=== PATIENT | male | born 1970 | race Caucasian/White ===

== ENCOUNTER → 2017-04-30 | Day surgery (SDC) | payer OTHER ==
--- NOTE | 2017-04-30 16:14 | RADIOLOGY REPORT (SQ) ---
EXAM DESCRIPTION: ARTHRO ELBOW INJECTION COMPLETED DATE/TIME: 04/30/2017 1:40 pm REASON FOR STUDY: SPONTANEOUS RUPTURE OF OTHER TENDONS, UNSPEC UPPER ARM (M66.829) M66.829 SPONTANE OUS RUPTURE OF OTHER TENDONS, UNSPECIFIED UP COMPARISON: None. FLUOROSCOPY TIME: 53 seconds 1 digital radiographic image saved to PACS. LIMITATIONS: None. PROCEDURE: Procedure, risks, benefits and alternatives explained to patient who then gave written c onsent. The left elbow was marked and a time-out was called for correct marking verification. Entry site marked using fluoroscopic guidance. Elbow prepped and draped using sterile technique. Local a nesthesia achieved using 1 mL of 1% lidocaine injection. 25 gauge needle introduced into the joint s pace under direct fluoroscopic visualization. Non-ionic contrast instilled to confirm intra-articula r position. Dilute gadolinium solution then injected. Needle removed and entry site covered with s terile bandage. No immediate complications noted. TECHNIQUE: Digital images acquired during fluoroscopy and stored on PACS. Patient immediately take n to the MR suite for additional imaging. INJECTION LOCATION: Left elbow at the radiohumeral joint CONTRAST TYPE AND AMOUNT: 0.5 mL of Isovue-300 was injected to confirm intra-articular needle placeme nt followed by 4 mL of dilute ProHance gadolinium for MR arthrogram IMPRESSION: SUCCESSFUL NEEDLE PLACEMENT AND INJECTION FOR LEFT ELBOW MR ARTHROGRAM. COMMENT: Quality ID [id number]: Final reports for procedures using fluoroscopy that document radiation exp osure indices, or exposure time and number of fluorographic images (if radiation exposure indices are not available) TECHNICAL DOCUMENTATION: JOB ID: [id number] [employer]- All Rights Reserved
--- NOTE | 2017-04-30 16:53 | RADIOLOGY REPORT (SQ) ---
EXAM DESCRIPTION: MRI LT UPPER JOINT WITH COMPLETED DATE/TIME: 04/30/2017 2:08 pm REASON FOR STUDY: SPONTANEOUS RUPTURE OF OTHER TENDONS, UNSPEC UPPER ARM (M66.829) M66.829 SPONTANE OUS RUPTURE OF OTHER TENDONS, UNSPECIFIED UP COMPARISON: Plain radiograph TECHNIQUE: Leftelbow images acquired and stored on PACS. Multiplanar images to include fat sensitive sequences as T1, fluid sensitive sequences as T2/STIR, cartilage sensitive sequences as FSPD, and co ntrast sensitive sequences as FST1. LIMITATIONS: None. FINDINGS: BONE MARROW: Residual bone bruising/ marrow edema of the olecranon. JOINT DISTENSION: Adequate MEDIAL COLLATERAL LIGAMENT COMPLEX: Normal MEDIAL EPICONDYLE AND COMMON FLEXOR TENDON: Normal LATERAL COLLATERAL LIGAMENT: Normal LATERAL EPICONDYLE AND COMMON EXTENSOR TENDON: Normal LATERAL ULNAR COLLATERAL LIGAMENT: Normal BICEPS TENDON: Normal TRICEPS TENDON: Edema status post repair. ULNAR NERVE: Extensive edema along the course of the ulnar nerve. Ulnar nerve is poorly defined. ADJACENT SOFT TISSUES: Persistent posterior edema. OTHER: No other significant finding. IMPRESSION: Persistent edema along the triceps attachment on the ulnar but in soft tissue and bone. Edema extends along the tract of the ulnar nerve. No occult fracture. TECHNICAL DOCUMENTATION: JOB ID: [id number] [employer]- All Rights Reserved
== END ==
LOC: RAD 12:43
PROVIDERS: ATTEND Orthopaedic Surgery
PROC: BP0 Imaging, Non-Axial Upper Bones, Plain Radiography (ICD-10-PCS; principal; 2017-04-30)
DX: M66.822 Spontaneous rupture of other tendons, left upper arm (principal)
CPT/HCPCS: 73222; 77002; 24220; A9576

== ENCOUNTER 2018-07-22 10:28 | Observation (INO) | payer BC, OTHER ==
[2018-07-22 11:01] LABS: ABSOLUTE BASOPHILS # (AUTO) 0.1 10^3/uL (0.0-0.2); ABSOLUTE EOSINOPHILS # (AUTO) 0.1 10^3/uL (0.0-0.6); ABSOLUTE MONOCYTES (AUTO) 0.7 10^3/uL (0.1-1.4); ABSOLUTE NEUT (AUTO) 6.9 10^3/uL (1.7-8.2); BASOPHILS % (AUTO) 0.9 % (0-2); LYMPHOCYTES % (AUTO) 11.7 % (13-45); MEAN CORPUSCULAR HEMOGLOBIN 27.7 pg (27.0-33.4); MEAN CORPUSCULAR HGB CONC 33.5 g/dL (32.0-36.0); MEAN CORPUSCULAR VOLUME 83 fl (80-97); RED BLOOD COUNT 6.84 10^6/uL (4.35-5.55); RED CELL DISTRIBUTION WIDTH 14.2 % (11.5-14.0); SEGMENTED NEUTROPHILS % (AUTO) 78.4 % (42-78); TOTAL CELLS COUNTED % (AUTO) 100 %; WHITE BLOOD COUNT 8.8 10^3/uL (4.0-10.5)
--- NOTE | 2018-07-22 11:13 | RADIOLOGY REPORT (SQ) ---
EXAM DESCRIPTION: CHEST SINGLE VIEW COMPLETED DATE/TIME: 07/22/2018 10:56 am REASON FOR STUDY: bed 12 cp COMPARISON: None. EXAM PARAMETERS: NUMBER OF VIEWS: One view. TECHNIQUE: Single frontal radiographic view of the chest acquired. RADIATION DOSE: NA LIMITATIONS: None. FINDINGS: LUNGS AND PLEURA: No opacities, masses or pneumothorax. No pleural effusion. MEDIASTINUM AND HILAR STRUCTURES: No masses. Contour normal. HEART AND VASCULAR STRUCTURES: Heart normal in size. Normal vasculature. BONES: No acute findings. HARDWARE: None in the chest. OTHER: No other significant finding. IMPRESSION: NO ACUTE RADIOGRAPHIC FINDING IN THE CHEST. TECHNICAL DOCUMENTATION: JOB ID: [id number] [employer]- All Rights Reserved Reading location - IP/workstation name: [email or web address]
[2018-07-22 11:18] LABS: ALANINE AMINOTRANSFERASE 34 U/L (21-72); ALKALINE PHOSPHATASE 74 U/L (38-126); ASPARTATE AMINO TRANSFERASE 15 U/L (17-59); BILIRUBIN,DIRECT 0.3 mg/dL (0.0-0.4); BILIRUBIN,TOTAL 0.5 mg/dL (0.2-1.3); BLOOD UREA NITROGEN 14 mg/dL (7-20); CALCIUM 9.6 mg/dL (8.4-10.2); CARBON DIOXIDE 24 mmol/L (22-30); CHLORIDE 108 mmol/L (98-107); CREATINE KINASE 145 U/L (55-170); GLUCOSE 107 mg/dL (75-110); POTASSIUM 3.9 mmol/L (3.6-5.0); TOTAL PROTEIN 6.6 g/dL (6.3-8.2)
[2018-07-22 11:20] LABS: ANION GAP 9 (5-19); SODIUM 141.2 mmol/L (137-145)
[2018-07-22] MEDS ORDERED: KETOROLAC TROMETHAMINE INJ/PF 30 MG/1 ML SDV IV ONE ×2 (11:23)
[2018-07-22] MEDS ORDERED: ONDANSETRON HCL INJ/PF 4 MG/2 ML SDV IV ONE (11:23)
[2018-07-22 11:33] LABS: HEMATOCRIT 56.7 % (37.9-51.0); TROPONIN I < 0.012 ng/mL
[2018-07-22 11:34] LABS: PLATELET COUNT 102 10^3/uL (150-450)
[2018-07-22] MEDS ORDERED: NITROGLYCERIN 0.4 MG/TAB 25 TAB/BOTTLE ONE (11:47)
[2018-07-22 11:51] LABS: LIPASE 197.7 U/L (23-300)
[2018-07-22] MEDS ORDERED: NORMAL SALINE 1000 ML 1,000 ML IV ONE (12:21)
--- NOTE | 2018-07-22 12:43 | RADIOLOGY REPORT (SQ) ---
EXAM DESCRIPTION: U/S ABDOMEN LIMITED W/O DOP COMPLETED DATE/TIME: 07/22/2018 12:07 pm REASON FOR STUDY: RUQ abd pain COMPARISON: None. TECHNIQUE: Dynamic and static grayscale images acquired of the abdomen and recorded on PACS. Additio nal selected color Doppler and spectral images recorded. LIMITATIONS: Examination generally limited by overlying bowel gas. FINDINGS: PANCREAS: No masses. Visualized pancreatic duct normal caliber. LIVER: No masses. Echotexture normal. LIVER VASCULATURE: Normal directional flow of the main portal vein and hepatic veins. GALLBLADDER: No mobile stones. Multiple small adherent foci, which may reflect adherent gallstones o r adenomas, measuring up to 5 mm. Normal wall thickness. No pericholecystic fluid. ULTRASOUND-DETECTED NUÑEZ'S SIGN: Negative. INTRAHEPATIC DUCTS AND COMMON DUCT: CBD and intrahepatic ducts normal caliber. No filling defects. INFERIOR VENA CAVA: Normal flow. AORTA: No aneurysm. RIGHT KIDNEY: Normal size. Normal echogenicity. No solid or suspicious masses. No hydronephrosis. No calcifications. PERITONEAL AND RIGHT PLEURAL SPACE: No ascites or effusions. OTHER: No other significant findings. IMPRESSION: 1. No acute ultrasound findings to explain abdominal pain. Consider CT or MRI to [facility] evaluate unexplained abdominal pain. 2. Multiple small adherent foci of the gallbladder, which may reflect adherent gallstones or adenomas , measuring up to 5 mm. Recommend initial follow-up ultrasound examination at 1 year to ensure stabi lity. TECHNICAL DOCUMENTATION: JOB ID: [id number] [place] [employer]- All Rights Reserved Reading location - IP/workstation name: [email or web address]
--- NOTE | 2018-07-22 12:53 | EKG REPORT ---
SEVERITY:- NORMAL ECG - SINUS RHYTHM : Confirmed by: Fredo Kennedy MD 22-Jul-2018 12:52:18
--- NOTE | 2018-07-22 14:19 | ER Document Report ---
Entered by LILA SANCHEZ SCRIBE 07/22/18 1136 Acting as scribe for:ALF WORLEY MD ED General - General Chief Complaint: Chest Pain Stated Complaint: CHEST PAIN Time Seen by Provider: 07/22/18 11:00 Mode of Arrival: Ambulatory Information source: Patient Notes: Patient is a 47 year old male with anxiety presents to the emergency department complaining of chest pain onset 30 minutes prior to arrival. Patient states he was at work, indoors, when he began to feel extremely diaphoretic, nauseous and developed chest pain. Patient states he stepped outside to "cool down" when he proceeded to vomit and have a syncopal episode. Patient states he became alert upon EMS arrival. Patient states the chest pain is located on the left with a severity of 3/5. Patient states he recently discontinued Adderall due to increased anxiety. Patient is currently prescribed 20 mg Setraline and 0.5 of testosterone IM. The patient received 2 sprays of nitroglycerin under his tongue in route by EMS. He states it did bring the pain down. He states when he got here pain was starting to increase and he was given an additional nitroglycerin tablet under the tongue which did bring the pain down quite a lot. TRAVEL OUTSIDE OF THE [place] IN LAST 30 DAYS: No - Related Data Allergies/Adverse Reactions: No Known Allergies Allergy (Unverified 07/22/18 11:48) Past Medical History - General Information source: Patient - Social History Smoking Status: Former Smoker - Quit 2 weeks ago as of 07/22/18. Had been smoking 1PPD. Cigarette use (# per day): No Chew tobacco use (# tins/day): No Smoking Education Provided: No Frequency of alcohol use: Occasional Drug Abuse: None Lives with: Spouse/Significant other Family History: CAD - Early age onset coronary artery thrombosis Patient has suicidal ideation: No Patient has homicidal ideation: No Past Surgical History: Reports: Hx Orthopedic Surgery - Right knee ACL, MCL. Left ankle, Other - Facial reconstruction 1993. Review of Systems - Review of Systems Constitutional: See HPI, Diaphoresis EENT: No symptoms reported Cardiovascular: See HPI, Chest pain, Syncope Respiratory: No symptoms reported Gastrointestinal: See HPI, Vomiting Genitourinary: No symptoms reported Male Genitourinary: No symptoms reported Musculoskeletal: No symptoms reported Skin: No symptoms reported Hematologic/Lymphatic: No symptoms reported Neurological/Psychological: No symptoms reported -: Yes All other systems reviewed and negative Physical Exam - Vital signs Vitals: Resp 22 H 07/22/18 10:38 - Notes Notes: GENERAL: Alert, interacts well. No acute distress. HEAD: Normocephalic, atraumatic. EYES: Pupils equal, round, and reactive to light. Extraocular movements intact. ENT: Oral mucosa moist, tongue midline. NECK: Full range of motion. Supple. Trachea midline. LUNGS: Clear to auscultation bilaterally, no wheezes, rales, or rhonchi. No respiratory distress. No anterior chest wall tenderness to palpation. HEART: Regular rate and rhythm. No murmurs, gallops, or rubs. ABDOMEN: Soft, RUQ tenderness to palpation, less tender to the epigastric reg ion. Non-distended. Bowel sounds present in all 4 quadrants. No guarding, rigidity, or rebound. EXTREMITIES: Moves all 4 extremities spontaneously. NEUROLOGICAL: Alert and oriented x3. Normal speech. PSYCH: Normal affect, normal mood. SKIN: Warm, dry, normal turgor. No rashes or lesions noted. BACK: No tenderness to palpation. Course - Re-evaluation Re-evalutation: 07/22/18 12:21 At this time the patient has minimal discomfort and states he feels well. - Vital Signs Vital signs: Temp Pulse Resp BP Pulse Ox 98.4 F 83 11 L 135/80 H 96 07/22/18 10:48 07/22/18 10:48 07/22/18 12:04 07/22/18 11:31 07/22/18 12:04 - Laboratory Result Diagrams: 07/22/18 10:28 07/22/18 10:28 Laboratory results interpreted by me: 07/22/18 07/22/18 10:28 10:28 RBC 6.84 H Hgb 19.0 H Hct 56.7 H RDW 14.2 H Plt Count 102 L Seg Neutrophils % 78.4 H Lymphocytes % 11.7 L Chloride 108 H AST 15 L - Diagnostic Test Radiology reviewed: Image reviewed, Reports reviewed - X-ray does not show any acute changes. Gallbladder ultrasound shows Discharge - Discharge Clinical Impression: Polycythemia Chest pain Qualifiers: Chest pain type: unspecified Qualified Code(s): R07.9 - Chest pain, unspecified Condition: Stable Disposition: ADMITTED INPATIENT Admitting Provider: Hospitalist Unit Admitted: Telemetry Scribe Attestation: 07/22/18 12:23 I personally performed the services described in the documentation, reviewed and edited the documentation which was dictated to the scribe in my presence, and it accurately records my words and actions. I personally performed the services described in the documentation, reviewed and edited the documentation which was dictated to the scribe in my presence, and it accurately records my words and actions.
--- NOTE | 2018-07-22 14:47 | PDOC H&P ---
History of Present Illness Admission Date/PCP: 07/22/18 14:23 RENO CHAU DO History of Present Illness: NEETU PERALES is a 47 year old male patient with no significant medic al problem except anxiety brought by EMS with chief complaint of chest pain. Patient reports this he has been in his usual baseline state of health up until 30 minutes prior to arrival to ER when he started to have chest pain described as crushing and pressure like "somebody sitting on my chest". The chest pain is nonradiating and is not associated with deep breathing. Patient reports relief after he is given 2 sprays of nitroglycerin by EMS. Patient states"my brother of coronary thrombosis at my age". Patient quit smoking 2 weeks ago and he used to smoke a pack a day. Patient denies any chills, fever, palpitation, cough, headache, blurring of vision or any seizure activity. He endorses nausea and syncopal attack. His EKG is unremarkable and his first set of cardiac enzymes negative. Past Surgical History Past Surgical History: Reports: Orthopedic Surgery - Right knee ACL, MCL. Left ankle, Other - Facial reconstruction 1993. Social History Smoking Status: Former Smoker - Quit 2 weeks ago as of 07/22/18. Had been smoking 1PPD. Frequency of Alcohol Use: None Drugs: None Hx Prescription Drug Abuse: No - Advance Directive Resuscitation Status: Full Code Family History Family History: Reviewed & Not Pertinent, CAD Parental Family History Reviewed: Yes Children Family History Reviewed: Yes Sibling(s) Family History Reviewed.: Yes Medication/Allergy Allergies/Adverse Reactions: No Known Allergies Allergy (Unverified 07/22/18 11:48) Review of Systems Constitutional: ABSENT: chills, fever(s), headache(s), weight gain, weight loss Eyes: ABSENT: visual disturbances Ears: ABSENT: hearing changes Cardiovascular: PRESENT: chest pain Respiratory: ABSENT: cough, hemoptysis Gastrointestinal: PRESENT: nausea, vomiting Genitourinary: ABSENT: dysuria, hematuria Musculoskeletal: ABSENT: joint swelling Integumentary: ABSENT: rash, wounds Neurological: ABSENT: abnormal gait, abnormal speech, confusion, dizziness, focal weakness, syncope Psychiatric: ABSENT: anxiety, depression, homidical ideation, suicidal ideation Endocrine: ABSENT: cold intolerance, heat intolerance, polydipsia, polyuria Hematologic/Lymphatic: ABSENT: easy bleeding, easy bruising Physical Exam Vital Signs: Temp Pulse Resp BP Pulse Ox 98.4 F 83 11 L 135/80 H 96 07/22/18 10:48 07/22/18 10:48 07/22/18 12:04 07/22/18 11:31 07/22/18 12:04 Intake & Output 07/21/18 07/22/18 07/23/18 06:59 06:59 06:59 Weight 95.254 kg General appearance: PRESENT: no acute distress Head exam: PRESENT: atraumatic, normocephalic Eye exam: PRESENT: conjunctiva pink, nystagmus Mouth exam: PRESENT: moist Respiratory exam: PRESENT: clear to auscultation neil. ABSENT: rales, rhonchi, wheezes Cardiovascular exam: PRESENT: RRR. ABSENT: diastolic murmur, rubs, systolic murmur GI/Abdominal exam: PRESENT: normal bowel sounds, soft. ABSENT: distended, guarding, mass, organolmegaly, rebound, tenderness Neurological exam: PRESENT: alert, awake, oriented to person, oriented to place, oriented to time, oriented to situation, CN II-XII grossly intact. ABSENT: motor sensory deficit Psychiatric exam: PRESENT: normal mood Results Laboratory Results: 07/22/18 10:28 07/22/18 10:28 07/22/18 07/22/18 07/22/18 10:28 10:28 10:28 WBC 8.8 RBC 6.84 H Hgb 19.0 H Hct 56.7 H MCV 83 MCH 27.7 MCHC 33.5 RDW 14.2 H Plt Count 102 L Seg Neutrophils % 78.4 H Lymphocytes % 11.7 L Monocytes % 8.0 Eosinophils % 1.0 Basophils % 0.9 Absolute Neutrophils 6.9 Absolute Lymphocytes 1.0 Absolute Monocytes 0.7 Absolute Eosinophils 0.1 Absolute Basophils 0.1 Sodium 141.2 Potassium 3.9 Chloride 108 H Carbon Dioxide 24 Anion Gap 9 BUN 14 Creatinine 1.15 Est GFR ( Amer) > 60 Est GFR (Non-Af Amer) > 60 Glucose 107 Calcium 9.6 Total Bilirubin 0.5 AST 15 L ALT 34 Alkaline Phosphatase 74 Total Protein 6.6 Albumin 4.0 Lipase 197.7 07/22/18 07/22/18 10:28 10:28 Creatine Kinase 145 CK-MB (CK-2) 1.60 Troponin I < 0.012 Impressions: Chest X-Ray 07/22/18 10:33 IMPRESSION: NO ACUTE RADIOGRAPHIC FINDING IN THE CHEST. Abdomen Ultrasound 07/22/18 11:21 IMPRESSION: 1. No acute ultrasound findings to explain abdominal pain. Consider CT or MRI to further evaluate unexplained abdominal pain. 2. Multiple small adherent foci of the gallbladder, which may reflect adherent gallstones or adenomas, measuring up to 5 mm. Recommend initial follow-up ultrasound examination at 1 year to ensure stability. Assessment and Plan - Diagnosis (1) Chest pain Qualifiers: Chest pain type: other chest pain Qualified Code(s): R07.89 - Other chest pain; R07.8 - Other chest pain Is this a current diagnosis for this admission?: Yes Plan: Since patient has some risk factor like heavy smoking and history of first- degree relative namely his brother of [place], it is appropriate to admit the patient for observation. We will trend his cardiac enzymes repeat his EKG and cardiac stress test. (2) Secondary polycythemia Is this a current diagnosis for this admission?: Yes Plan: Due to heavy smoking. Patient does not have any shortness of breath, central cyanosis or conjunctival injection. (3) History of anxiety Is this a current diagnosis for this admission?: Yes Plan: Follow-up with his primary psychiatrist.
[2018-07-22] MEDS ORDERED: OXYCODONE-ACETAMINOPHEN 5-325 MG TABLET PO PRN (14:48)
[2018-07-22] MEDS ORDERED: ONDANSETRON 4 MG TAB.RAPDIS PO PRN (14:48)
[2018-07-22] MEDS ORDERED: ALPRAZOLAM 0.5 MG TABLET PO PRN (14:53)
[2018-07-22] MEDS ORDERED: NITROGLYCERIN 0.4 MG/TAB 25 TAB/BOTTLE SL PRN (14:59)
[2018-07-22] MEDS: ENOXAPARIN SODIUM INJ 40 MG/0.4 ML DISP.SYRIN SUBCUT SCH (16:31)
[2018-07-22 16:44] LABS: AMORPHOUS SEDIMENT,URINE TRACE /HPF; APPEARANCE,URINE CLOUDY; BILIRUBIN,URINE NEGATIVE (NEGATIVE); COLOR,URINE YELLOW; GLUCOSE, URINE NEGATIVE (NEGATIVE); KETONES,URINE TRACE mg/dL (NEGATIVE); LEUKOCYTE ESTERASE,URINE NEGATIVE (NEGATIVE); NITRITE,URINE NEGATIVE (NEGATIVE); PROTEIN,URINE NEGATIVE (NEGATIVE); URINE SPECIFIC GRAVITY 1.023; UROBILINOGEN,URINE NEGATIVE mg/dL (<2.0)
[2018-07-23] MEDS: FAMOTIDINE 20 MG TABLET PO SCH ×2 (00:41→12:27)
[2018-07-23 05:49] LABS: MEAN CORPUSCULAR HEMOGLOBIN 27.6 pg (27.0-33.4); MEAN CORPUSCULAR HGB CONC 33.2 g/dL (32.0-36.0); MEAN CORPUSCULAR VOLUME 83 fl (80-97); RED BLOOD COUNT 6.14 10^6/uL (4.35-5.55); RED CELL DISTRIBUTION WIDTH 13.9 % (11.5-14.0); WHITE BLOOD COUNT 7.6 10^3/uL (4.0-10.5)
[2018-07-23 06:37] LABS: PLATELET COUNT 76 10^3/uL (150-450)
[2018-07-23] MEDS: ENOXAPARIN SODIUM INJ 40 MG/0.4 ML DISP.SYRIN SUBCUT SCH (10:48)
--- NOTE | 2018-07-23 13:29 | EKG REPORT ---
SEVERITY:- NORMAL ECG - SINUS RHYTHM : Confirmed by: Fredo Kennedy MD 23-Jul-2018 13:28:44
[2018-07-23] MEDS ORDERED: REGADENOSON INJ 0.4 MG/5 ML DISP.SYRIN IV ONE (13:58)
[2018-07-23 15:30] VITALS: BP 139/61
--- NOTE | 2018-07-23 20:47 | PDOC DISCHARGE SUMMARY ---
General - Admit/Disc Date/PCP Admission Date/Primary Care Provider: 07/22/18 14:23 RENO CHAU, DO Discharge Date: 07/23/18 - Discharge Diagnosis (1) Chest pain Is this a current diagnosis for this admission?: Yes Summary: Noncardiac. Stress test was negative. The patient is under a great deal of stress in the substernal discomfort was most esophageal versus stress/anxiety. (2) History of anxiety Is this a current diagnosis for this admission?: Yes Summary: Currently on 2 medications for anxiety. Unfortunately he is under a great deal of emotional stress at this time due to marital discord. This was likely the most significant contributing factor to the episode of chest pain. (3) Thrombocytopenia Is this a current diagnosis for this admission?: Yes Summary: The patient did receive DVT prophylaxis. His platelet count did drop and therefore the heparin was held. His platelet count was only 102 on admission. There are no old laboratory studies to compare prior to this admission. This can be followed up as an outpatient. (4) Secondary polycythemia Is this a current diagnosis for this admission?: Yes Summary: Possibly due to dehydration. With fluids his hemoglobin and hematocrit normalized. Continue to encourage good fluid intake. - Additional Information Resuscitation Status: Full Code Discharge Diet: Cardiac Discharge Activity: Activity As Tolerated, Balance Activity w/Rest Home Medications: Bupropion HCl [Wellbutrin Xl 150 mg 24hr Tablet] 150 mg PO DAILY 07/22/18 Citalopram Hydrobromide [Celexa 20 mg Tablet] 20 mg PO DAILY 07/22/18 History of Present Illness Patient complains of: Chest pain History of Present Illness: NEETU PERALES is a 47 year old male has a history of anxiety and is going through a difficult emotional time with regard to his marriage. He also has a brother who of coronary disease in his late 40s. The patient is a former tobacco user and recently quit 2 weeks ago. He developed acute onset crushing pain described as someone sitting on his chest. There were no associated symptoms and no radiation of the discomfort. The chest pain had an abrupt onset approximately 30 minutes prior to the patient's arrival in the emergency department. Hospital Course Hospital Course: Uneventful hospital course. Serial troponins were negative as well as a Cardiolite stress test. Physical Exam Vital Signs: Temp Pulse Resp BP Pulse Ox 98.6 F 71 16 133/69 H 97 07/23/18 10:55 07/23/18 10:55 07/23/18 10:55 07/23/18 10:55 07/23/18 10:55 Intake & Output 07/22/18 07/23/18 07/24/18 06:59 06:59 06:59 Intake Total 1000 Balance 1000 Weight 93 kg General appearance: PRESENT: no acute distress, cooperative, well-developed Head exam: PRESENT: normocephalic Eye exam: PRESENT: conjunctiva pink. ABSENT: scleral icterus Mouth exam: PRESENT: moist, tongue midline Respiratory exam: PRESENT: clear to auscultation neil, symmetrical, unlabored. ABSENT: accessory muscle use, rales, rhonchi, wheezes Cardiovascular exam: PRESENT: RRR, +S1, +S2 GI/Abdominal exam: PRESENT: normal bowel sounds, soft. ABSENT: distended, tenderness Rectal exam: PRESENT: deferred Extremities exam: ABSENT: pedal edema Musculoskeletal exam: PRESENT: ambulatory Neurological exam: PRESENT: alert, awake, oriented to person, oriented to place, oriented to time, oriented to situation, CN II-XII grossly intact Psychiatric exam: PRESENT: anxious, appropriate affect. ABSENT: agitated Focused psych exam: ABSENT: delusional, restlessness Skin exam: PRESENT: dry, normal color, warm Results Laboratory Results: 07/23/18 04:38 07/22/18 10:28 07/22/18 07/23/18 15:11 04:38 WBC 7.6 RBC 6.14 H Hgb 17.0 Hct 51.0 MCV 83 MCH 27.6 MCHC 33.2 RDW 13.9 Plt Count 76 L Urine Color YELLOW Urine Appearance CLOUDY Urine pH 7.0 Ur Specific [place] 1.023 Urine Protein NEGATIVE Urine Glucose (UA) NEGATIVE Urine Ketones TRACE H Urine Blood NEGATIVE Urine Nitrite NEGATIVE Ur Leukocyte Esterase NEGATIVE Urine WBC (Auto) 1 Urine RBC (Auto) 0 07/22/18 07/22/18 07/22/18 10:28 10:28 14:32 Creatine Kinase 145 CK-MB (CK-2) 1.60 Troponin I < 0.012 < 0.012 07/23/18 08:38 Creatine Kinase CK-MB (CK-2) Troponin I < 0.012 Impressions: Chest X-Ray 07/22/18 10:33 IMPRESSION: NO ACUTE RADIOGRAPHIC FINDING IN THE CHEST. Abdomen Ultrasound 07/22/18 11:21 IMPRESSION: 1. No acute ultrasound findings to explain abdominal pain. Consider CT or MRI to further evaluate unexplained abdominal pain. 2. Multiple small adherent foci of the gallbladder, which may reflect adherent gallstones or adenomas, measuring up to 5 mm. Recommend initial follow-up ultrasound examination at 1 year to ensure stability. Qualifiers - * PATIENT BEING DISCHARGED WITH ANY OF THE FOLLOWING DIAGNOSIS: No Plan Discharge Plan: Follow-up with primary care provider. Continue current medications. Consider stress management. Time Spent: Greater than 30 Minutes
--- NOTE | 2018-07-28 19:54 | DRAGON STRESS TEST REPORT ---
Intravenous Lexiscan Cardiolite stress test using single photon emmision computerized tomography. Date of procedure: 07/23/2018. Ordering Provider: Dr. Mcmillan. Patient's status: In Patient. Indication: Chest pain. Coronary risk factors: Age, and family history of coronary artery disease. Resting EKG: Sinus Rhythm. PVCs present. No acute changes Stress EKG: No changes of ischemia. The patient had no chest pain or discomfort, and there were no arrhythmias seen. Reason for termination: Protocol. Conclusions: Normal EKG and hemodynamic response to IV Lexiscan. Nuclear data: At rest the patient was given 14.57 millicuries of technetium 99m sestamibi injected intravenously. As per protocol rest non gated SPECT images were obtained. Subsequently the patient was given intravenous Lexiscan at a dose of 0.4 mg in 5 mL intravenously, followed by flush with normal saline. Subsequently the stress dose of 40.2 millicuries of technetium 99m sestamibi was injected intravenously. As per protocol stress gated images were obtained. Nuclear interpretation: Review of images showed that all segments of the myocardium had normal perfusion at rest, and normal perfusion post stress with IV Lexiscan. All segments of the myocardium had normal motion, contraction, and thickening by gated study. T. I D. ratio was normal at 0.96. There is no transient ischemic dilatation of the left ventricle. Computer read rest, and stress left ventricular ejection fraction were 48 %, and 46 %, respectively. Visually both the stress and rest ejection fractions were normal, and greater than 55%. Conclusion: 1. There is no scintigraphic evidence of Lexiscan induced myocardial ischemia. 2. There is no scintigraphic evidence of myocardial infarction/scar. Recommendations: 1. Recommend echo for LV ejection fraction correlation. 2. Aggressive risk factor modification, and treating the underlying co- morbidities. [facility]
== END 2018-07-23 15:50 | disposition home or self-care (01) ==
LOC: ER 10:28 → EH 14:23 → INTOOBSV 14:23 → 4N 16:18
PROVIDERS: ADMIT Internal Medicine; ATTEND Internal Medicine
DX: R07.89 Other chest pain (principal); Z73.3 Stress, not elsewhere classified; Z63.0 Problems in relationship with spouse or partner; F41.9 Anxiety disorder, unspecified; D69.6 Thrombocytopenia, unspecified; D75.1 Secondary polycythemia; R11.2 Nausea with vomiting, unspecified; R55 Syncope and collapse; R61 Generalized hyperhidrosis; Z79.899 Other long term (current) drug therapy; Z87.891 Personal history of nicotine dependence; Z82.49 Family history of ischemic heart disease and other diseases of the circulatory system
CPT/HCPCS: 93005 ×2; 99285; 96361; 96374; 96375; 36415 ×2; 82553; 82550; 83690; 85025; 85027; 80053; 81001; 84484 ×2; 93017; 71045; 76705; 78452; 93010 ×2; G0378 ×3; A9500; J2785; J1885; J1650; J2405; J7030; Q9969